=== PATIENT | male | born 1950 | race Caucasian/White ===

== ENCOUNTER 2020-09-18 09:21 | Outpatient (REF) | payer BC, SELFPAY ==
[2020-09-18 11:34] LABS: Glucose Urine UA NEG (NEG); Leukocyte Esterase Urine NEG (NEG); Nitrite Urine NEG (NEG); PH 6.5 (5.0-8.0); Specific Gravity - Urine 1.025 (1.005-1.025); Urine Blood TRACE (NEG); Urine Ketones NEG (NEG); Urine Protein TRACE MG/DL (NEG-TRACE)
[2020-09-18 11:36] LABS: Appearance Urine HAZY; Color Urine YELLOW
[2020-09-18 11:47] LABS: Hemoglobin 11.6 g/dl (14.0-18.0); Mean Corpuscular HGB Conc 31.4 g/dl (31.0-36.0); Mean Corpuscular Hemoglobin 26.5 pg (27.0-33.0); Mean Corpuscular Volume 84.7 fL (80-98); Mean Platelet Volume 10.3 fL (9.4-12.4); Platelet Count 379 X10*3/uL (160-400); Red Blood Count 4.37 X10*6/uL (4.60-5.80); Red Cell Distribution Width 15.1 % (11.0-16.0); White Blood Count 7.3 X10*3/uL (4.8-10.8)
[2020-09-18 11:50] LABS: Mucus Urine 2+ /LPF; WBC Urine 0-2 /HPF (0-4)
[2020-09-18 12:09] LABS: Alanine Aminotransferase 21 U/L (0-40); Albumin Level 3.9 g/dL (3.5-5.0); Alkaline Phosphatase 96 U/L (39-117); Anion Gap 13 (12-20); Aspartate Amino Transferase 17 U/L (5-37); Bilirubin Total 0.6 mg/dL (0.0-1.0); Blood Urea Nitrogen 17 mg/dL (9-16); Calcium 9.2 mg/dL (8.4-10.2); Carbon Dioxide 27 mmol/L (22-29); Chloride 105 mmol/L (96-108); Cholesterol 126 mg/dL; Estimated Glomerular Filt Rate > 60; Glucose Fasting 94 mg/dL (60-99); HDL Cholesterol 44 mg/dL; LDL Cholesterol Calculated 69 mg/dl; Potassium 4.6 mmol/L (3.3-5.1); Sodium 140 mmol/L (135-145); Total Protein 6.9 g/dL (6.5-8.0); Triglycerides 68 mg/dL
[2020-09-18 12:21] LABS: Prostate Specific Antigen Scr 1.89 ng/mL (<0.05-4.0); Vitamin D 25-OH Total 22.9 ng/mL (>30)
[2020-09-18 12:53] LABS: Folate 16.3 ng/mL (> or = 4.0); Vitamin B12 > 2000 pg/mL (200-900)
== END 2020-09-18 09:22 | disposition home or self-care (01) ==
LOC: HO.HMGCLDS 09:21
PROVIDERS: PCP Internal Medicine; Visit Provider Internal Medicine
DX: R00.0 Tachycardia, unspecified (principal); I95.9 Hypotension, unspecified; Z12.5 Encounter for screening for malignant neoplasm of prostate
CPT/HCPCS: 36415; 80053; 80061; 81001; 82306; 82607; 82746; 84153; 85027

== ENCOUNTER 2020-11-21 09:49 | Outpatient (REF) | payer BC, SELFPAY ==
[2020-11-21 11:25] LABS: Glucose Urine UA NEG (NEG); Leukocyte Esterase Urine NEG (NEG); Nitrite Urine NEG (NEG); Specific Gravity - Urine >= 1.030 (1.005-1.025); UACC Culture Trigger NO; Urine Blood TRACE (NEG); Urine Ketones NEG (NEG); Urine Protein NEG (NEG-TRACE)
[2020-11-21 11:29] LABS: Appearance Urine CLEAR; Color Urine YELLOW
[2020-11-21 12:17] LABS: TSH reflex Free T4 2.82 uIU/mL (0.32-4.0)
[2020-11-21 12:37] LABS: Mucus Urine 2+ /LPF
== END 2020-11-21 09:50 | disposition home or self-care (01) ==
LOC: HO.HMGCLDS 09:49
PROVIDERS: PCP Internal Medicine; Visit Provider Internal Medicine
DX: E03.9 Hypothyroidism, unspecified (principal)
CPT/HCPCS: 36415; 81001; 84443

== ENCOUNTER 2021-03-17 15:00 | Outpatient (REF) | payer BC, SELFPAY ==
--- NOTE | ~2021-03-17 | XR_ITS ---
EXAMINATION: XR CHEST CLINICAL INFORMATION: Chest pain. COMPARISON: None TECHNIQUE: 2 views of the chest were obtained. FINDINGS: The lungs are hyperinflated but clear of acute pneumonic process. The heart size and pulmonary vascularity is normal. There is a aortic stent extending from the ascending to the distal descending aorta. There are median sternotomy sutures. No gross bony abnormality seen. XR/XR chest 2V IMPRESSION: Unremarkable chest exam.
[2021-03-17 16:43] LABS: Hematocrit 38.9 % (42.0-52.0); Hemoglobin 12.5 g/dl (14.0-18.0); Mean Corpuscular HGB Conc 32.1 g/dl (31.0-36.0); Mean Corpuscular Hemoglobin 28.1 pg (27.0-33.0); Mean Corpuscular Volume 87.4 fL (80.0-98.0); Mean Platelet Volume 10.2 fL (9.4-12.4); Platelet Count 296 X10*3/uL (160-400); Red Blood Count 4.45 X10*6/uL (4.60-5.80); Red Cell Distribution Width 14.2 % (11.0-16.0); White Blood Count 6.8 X10*3/uL (4.8-10.8)
[2021-03-17 16:50] LABS: Appearance Urine CLEAR; Color Urine YELLOW; Glucose Urine UA NEG (NEG); Leukocyte Esterase Urine NEG (NEG); Nitrite Urine NEG (NEG); Specific Gravity - Urine >= 1.030 (1.005-1.025); UACC Culture Trigger NO; Urine Blood 1+ (NEG); Urine Ketones NEG (NEG); Urine Protein NEG (NEG-TRACE)
[2021-03-17 17:05] LABS: Anion Gap 12 (12-20); Blood Urea Nitrogen 13 mg/dL (9-16); C Reactive Protein 1.33 mg/dL (< or = 0.50); Calcium 9.5 mg/dL (8.4-10.2); Carbon Dioxide 28 mmol/L (22-29); Chloride 106 mmol/L (96-108); Estimated Glomerular Filt Rate > 60; Glucose Random 94 mg/dL (60-115); Potassium 4.6 mmol/L (3.3-5.1); Sodium 141 mmol/L (135-145)
[2021-03-17 17:08] LABS: Troponin-I High Sensitivity < 3.5 ng/L (<3.5-35.0)
[2021-03-17 17:22] LABS: WBC Urine 0-2 /HPF (0-4)
[2021-03-17 17:23] LABS: Mucus Urine TRACE /LPF; Sperm Urine NOTED
== END 2021-03-17 15:01 | disposition home or self-care (01) ==
LOC: HO.HMGCX 15:00
PROVIDERS: PCP Internal Medicine; Visit Provider Internal Medicine
DX: R07.9 Chest pain, unspecified (principal); M54.2 Cervicalgia; I71.01 Dissection of thoracic aorta; I10 Essential (primary) hypertension
CPT/HCPCS: 36415; 71046; 80048; 81001; 84484; 85027; 86140

== ENCOUNTER 2021-03-27 08:16 | Outpatient (REF) | payer MEDICARE, SELFPAY ==
--- NOTE | ~2021-03-27 | US_ITS ---
EXAMINATION: US SOFT TISSUE NECK CLINICAL INFORMATION: Localized enlarged lymph nodes. Prominent node or nodule left supraclavicular area. COMPARISON: Chest x-ray 03/17/2021 is negative for acute disease or nodule. TECHNIQUE: Ultrasound of the neck soft tissues is performed with high- frequency cueto-scale imaging and color Doppler. FINDINGS: Imaging through the left supraclavicular area reveals a complex cystic and solid mass with septation measuring 1.6 x 1.2 x 1.4 cm and appears vascular. It does not appear to be communicating with any of the great vessels. In addition, there are multiple small lymph nodes without a fatty hilum seen. They measure 0.82 x 0.46 x 0.67 cm and 0.89 x 0.79 x 0.95 cm in the left supraclavicular region. US/US soft tiss head and/or neck IMPRESSION: Large heterogeneous lymph node in the left supraclavicular area, abnormal and suspicious for primary or metastatic lesion. There are additional small lymph nodes seen in the left supraclavicular region. Correlate with CT neck and chest exam with contrast.
--- NOTE | ~2021-03-27 | US_ITS ---
EXAMINATION: US RETROPERITONEAL LIMITED (RENAL ONLY) CLINICAL INFORMATION: Microscopic hematuria. COMPARISON: None TECHNIQUE: Real-time imaging of the kidneys. FINDINGS: RIGHT KIDNEY: 11.0 x 6.2 x 5.0 cm (SAG x AP x TRV). The kidney is normal in size, contour, and echogenicity. Renal cortical thickness is normal. No calculi or focal parenchymal lesions. No hydronephrosis. LEFT KIDNEY: 11.8 x 6.5 x 5.1 cm (SAG x AP x TRV). The kidney is normal in size, contour, and echogenicity. Renal cortical thickness is normal. There is a 3 mm echogenic density in the midpole questionable for a small stone. No focal parenchymal lesions or hydronephrosis. US/US renal BI IMPRESSION: Question small left renal stone.
== END 2021-03-27 08:17 | disposition home or self-care (01) ==
LOC: HO.HMGCX 08:16
PROVIDERS: PCP Internal Medicine; Visit Provider Internal Medicine
DX: R59.0 Localized enlarged lymph nodes (principal); M54.2 Cervicalgia; I10 Essential (primary) hypertension; R31.29 Other microscopic hematuria
CPT/HCPCS: 76536; 76775

== ENCOUNTER 2021-04-22 08:46 | Outpatient (REF) | payer MEDICARE, SELFPAY ==
[2021-04-22 12:20] LABS: Blood Urea Nitrogen 17 mg/dL (9-16); Estimated Glomerular Filt Rate > 60
== END 2021-04-22 08:47 | disposition home or self-care (01) ==
LOC: HO.HMGCLDS 08:46
PROVIDERS: PCP Internal Medicine; Visit Provider Internal Medicine
DX: R59.0 Localized enlarged lymph nodes (principal)
CPT/HCPCS: 36415; 82565; 84520

== ENCOUNTER 2021-04-24 08:12 | Outpatient (REF) | payer MEDICARE, SELFPAY ==
--- NOTE | ~2021-04-24 | CT_ITS ---
EXAMINATION: CT SOFT TISSUE NECK WITH CONTRAST CLINICAL INFORMATION: Localized enlarged lymph nodes. COMPARISON: Ultrasound soft tissue neck 03/27/2021 TECHNIQUE: Following the intravenous administration of 60 mL of Omnipaque 350 intravenous contrast, helical imaging was performed in the axial plane with generation of coronal and sagittal reformatted images. This CT examination was performed using dose optimization techniques as appropriate, variously including the following: *Automated exposure control *Adjustment of mA and/or kV according to patient size (this includes techniques or standardized protocols for targeted exams where dose is matched to indication/reason for exam; i.e. extremities or head) *Use of iterative reconstruction technique DLP: 370 mGy-cm FINDINGS: There are bilateral small cervical lymph nodes in the anterior neck. The largest level III right neck lymph node measures 1.1 x 0.7 x 1.1 cm on axial 73/3 and sagittal 75/5. There is a large left supraclavicular nonenhancing lymph node measuring 1.6 x 1.3 cm on axial image 93/3. It measures 13 Hounsfield units, likely a small cyst or a cystic lymph node. In addition, there is a smaller left supraclavicular lymph node measuring 1 cm on axial image 111/3 measuring 10 Hounsfield units. The parotid glands are homogeneous in attenuation. The submandibular glands are normal. No contour abnormality or pathologic enhancement is seen within the oral cavity or pharyngeal mucosal space. There is significant stenosis involving the glottic region from thickening of the true and false vocal cords. There is mild haziness in the adjacent paraglottic fat but no focal mass or nodule visualized. There is a small polyp or mucosal thickening of the left vallecula (axial image 77/3), otherwise the supraglottic region is unremarkable. The subglottic region is unremarkable. The piriform sinuses are patent. Parapharyngeal fat is preserved. The carotid sheath vasculature opacifies normally. No extramucosal soft tissue mass or fluid collection is seen. No retropharyngeal fluid collection is seen. There is a 3 mm hypodense nodule deep in the mid pole of the left thyroid lobe. Otherwise, the thyroid lobes are symmetrical and normal. The superior mediastinum is unremarkable. The lung apices are clear. There is a small polyp or retention cyst in the left maxillary sinus. The rest of the paranasal sinuses and mastoid air cells are well aerated. The temporomandibular joints are normal. No periapical disease is identified. There is an aortic arch stent in place. Also visualized are mediastinal sutures from previous intervention. No osseous abnormalities are seen. There is left frontal scalp and supraorbital soft tissue swelling. The imaged portions of the brain parenchyma are unremarkable. There are degenerative disc changes with spondylosis at the C5-C6 and C6-C7 disc levels. No aggressive lytic or sclerotic process is seen in the cervical spine. CT/CT soft tissue neck w con IMPRESSION: Abnormal-sized nonenhancing left supraclavicular cystic lymph nodes or cysts. Ultrasound-guided aspiration biopsy of this lymph node or cyst can be performed for further evaluation. The findings are similar to the previous ultrasound exam 03/27/2021 Moderate diffuse thickening and mild enlargement of the true and false vocal cords with significant narrowing of the laryngeal airway. Question inflammatory or infectious etiology. Underlying lesion is not excluded given the abnormal supraclavicular lymph nodes and borderline left neck lymph nodes. Recommend laryngoscopy for further evaluation. Small polyp or retention cyst left maxillary sinus. Left frontal and left supraorbital soft tissue swelling. No calvarial abnormality seen.
[2021-04-24] MEDS: iohexoL 350 MG/ML 100 ML INFUS..BTL IV (09:12)
== END 2021-04-24 08:13 | disposition home or self-care (01) ==
LOC: HO.CT 08:12
PROVIDERS: PCP Internal Medicine; Visit Provider Internal Medicine
DX: R59.0 Localized enlarged lymph nodes (principal)
CPT/HCPCS: 70491; Q9967

== ENCOUNTER 2021-05-19 08:54 | Outpatient (REF) | payer MEDICARE, SELFPAY ==
--- NOTE | ~2021-05-19 | US_ITS ---
EXAMINATION: ULTRASOUND-GUIDED BIOPSY LYMPH NODE CLINICAL INFORMATION: Enlarged left cervical lymph node COMPARISON: Previous CT of the abdomen and pelvis 04/24/2021 and neck ultrasound 03/27/2021 TECHNIQUE: Procedure and risks and benefits including bleeding and infection were discussed with the patient and informed consent was obtained. The left neck was prepped and draped in the usual sterile fashion. The skin and soft tissues were anesthetized with 1% lidocaine plain. Using ultrasound guidance and a 22-gauge needle, access to the complex cystic lesion in the left neck was obtained. Approximately 4 mL of cloudy corcoran-colored fluid was aspirated and the lesion decreased in size. Additional 22-gauge FNA sample to ensure sampling of the solid component was performed. FINDINGS: There is a 1.5 x 1.3 x 1.6 cm complex cystic lesion in the left posterior lower neck that was targeted for fine-needle aspiration. US/US biopsy lymph node IMPRESSION: Ultrasound-guided left neck fine-needle aspiration.
[2021-05-19] MEDS: Lidocaine HCl 1 % MPF 5 ML VIAL 4 ML SUBCUT (09:59)
== END 2021-05-19 08:55 | disposition home or self-care (01) ==
LOC: HO.US 08:54
PROVIDERS: Radiology Diagnostic Radiology; PCP Internal Medicine; Visit Provider Internal Medicine
DX: R59.0 Localized enlarged lymph nodes (principal)
CPT/HCPCS: 36415; 38505; 76942; 88172; 88173; 88184; 88185; 88300; 88305

== ENCOUNTER 2021-05-27 07:03 | Outpatient (REF) | payer MEDICARE, SELFPAY ==
[2021-05-27 11:40] LABS: Hematocrit 39.4 % (42.0-52.0); Hemoglobin 12.7 g/dl (14.0-18.0); Mean Corpuscular HGB Conc 32.2 g/dl (31.0-36.0); Mean Corpuscular Hemoglobin 27.9 pg (27.0-33.0); Mean Corpuscular Volume 86.6 fL (80.0-98.0); Mean Platelet Volume 10.6 fL (9.4-12.4); Platelet Count 257 X10*3/uL (160-400); Red Blood Count 4.55 X10*6/uL (4.60-5.80); Red Cell Distribution Width 14.8 % (11.0-16.0); White Blood Count 6.5 X10*3/uL (4.8-10.8)
[2021-05-27 11:55] LABS: Alanine Aminotransferase 22 U/L (0-40); Albumin Level 4.2 g/dL (3.5-5.0); Alkaline Phosphatase 86 U/L (39-117); Anion Gap 11 (12-20); Aspartate Amino Transferase 19 U/L (5-37); Bilirubin Total 0.7 mg/dL (0.0-1.0); Blood Urea Nitrogen 15 mg/dL (9-16); Calcium 9.1 mg/dL (8.4-10.2); Carbon Dioxide 27 mmol/L (22-29); Chloride 110 mmol/L (96-108); Cholesterol 139 mg/dL; Estimated Glomerular Filt Rate > 60; Glucose Fasting 94 mg/dL (60-99); HDL Cholesterol 46 mg/dL; LDL Cholesterol Calculated 84 mg/dl; Lactate Dehydrogenase 212 U/L (118-273); Potassium 4.8 mmol/L (3.3-5.1); Sodium 143 mmol/L (135-145); Total Protein 7.1 g/dL (6.5-8.0); Triglycerides 49 mg/dL
[2021-05-27 12:24] LABS: Prostate Specific Antigen Scr 1.63 ng/mL (<0.05-4.0); TSH reflex Free T4 2.69 uIU/mL (0.32-4.0)
[2021-05-27 12:30] LABS: B Type Natriuretic Peptide 78 pg/mL (<100)
== END 2021-05-27 07:04 | disposition home or self-care (01) ==
LOC: HO.HMGCLDS 07:03
PROVIDERS: Visit Provider Internal Medicine
DX: Z12.5 Encounter for screening for malignant neoplasm of prostate (principal); R06.00 Dyspnea, unspecified; D64.9 Anemia, unspecified; E03.9 Hypothyroidism, unspecified; E78.5 Hyperlipidemia, unspecified; I10 Essential (primary) hypertension
CPT/HCPCS: 36415; 80053; 80061; 83615; 83880; 84153; 84443; 85027

== ENCOUNTER 2021-06-10 10:44 | Outpatient (REF) | payer MEDICARE, SELFPAY ==
--- NOTE | 2021-06-10 17:30 | PFT_ITS ---
INDICATION: Cough and/or dyspnea. SPIROMETRY: FEV1 to FVC 75%, post bronchodilators 69%. Prior to the bronchodilator therapy, FEV1 of 2.42 L, which is 81% predicted and FVC of 3.23 L, which is 79% predicted. No significant response to bronchodilators noted, although there is evidence of small airways disease. Maximum voluntary ventilation 88% predicted. LUNG VOLUMES: Total lung capacity 88% predicted with an expiratory reserve volume of 70% predicted consistent with the elevated BMI. In addition to that, there is a moderate diffusion impairment. COMPARISON: None. INTERPRETATION: There is a reversible obstruction consistent with diagnosis of asthma. The patient also has significant small airway disease. Lung volumes are within normal limits except for decrease in the expiratory reserve volume secondary to the elevated BMI. The moderate diffusion impairment could be secondary to underlying pulmonary vascular conditions, although need to correct for hemoglobin. Clinical correlation warranted. Del Julien MD MR/MODL / [id number]
== END 2021-06-10 10:45 | disposition home or self-care (01) ==
LOC: HO.RESP 10:44
PROVIDERS: PCP Internal Medicine; Visit Provider Internal Medicine
DX: R06.00 Dyspnea, unspecified (principal)
CPT/HCPCS: 94060; 94727; 94729

== ENCOUNTER → 2021-06-19 09:50 | Outpatient (BNVA) | payer MEDICARE, SELFPAY | PROVIDERS: PCP Internal Medicine; Referring Provider Internal Medicine; Visit Provider Surgery | DX: R59.0 Localized enlarged lymph nodes (principal) | CPT/HCPCS: 99202 ==

== ENCOUNTER 2021-06-30 07:30 | Day surgery (SDC) | payer MEDICARE, SELFPAY ==
[2021-06-24 10:55] VITALS: BMI 33.7
--- NOTE | 2021-06-27 08:19 | HO.ANESPROP2 ---
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 COVID and pericarditis postop (resolved) 04/2021 CT neck - thickening/enlargement of vocal cords with significant narrowing of laryngeal airway. 05/2021 larygoscopy by ENT shows mild edema, airway widely patent. True cords were symmetrical and mobile. No distinct lesions were noted. PCP cleared to proceed. Case reviewed with Dr Martini. [facility] Active Problems Active Problems: All Active Problems (Updated 06/25/21 @ 12:11 by Simran Cottrell MD) BARRY (obstructive sleep apnea) (Acute) Asthma (Acute) GANT (dyspnea on exertion) (Acute) Neck pain (Acute) GANT (dyspnea on exertion) (Acute) Vocal cords swelling (Acute) Cervical adenopathy (Acute) Microscopic hematuria (Acute) Chest pain (Acute) Hypertension (Acute) Lymphadenopathy, supraclavicular (Acute) Dysplastic nevi (Acute) Hyperlipidemia (Acute) Hypothyroid (Acute) Fatigue (Acute) Ascending aortic dissection (Acute) Hypotension (Acute) Anemia (Acute) Pericarditis (Acute) Pleurisy (Acute) Tachycardia (Acute) Aortic aneurysm (Acute) Past Medical History Medical History (Updated 06/25/21 @ 12:11 by Simran Cottrell MD) Anemia Aortic aneurysm Ascending aortic dissection Asthma Cervical adenopathy Chest pain CVA (cerebral vascular accident) GANT (dyspnea on exertion) Dysplastic nevi Fatigue GERD (gastroesophageal reflux disease) Hearing loss History of COVID-19 History of PFTs Hyperlipidemia Hypertension Hypotension Hypothyroid Insomnia Lymphadenopathy, supraclavicular Microscopic hematuria Mixed hyperlipidemia BARRY (obstructive sleep apnea) Pericarditis Pleurisy Severe obstructive sleep apnea Tachycardia Vision loss, left eye Vocal cords swelling Family History Family History Father Prostate cancer Pancreatic cancer Mother Lung cancer Brother Prostate cancer Sister Heart disease Surgical History Surgical History (Updated 06/24/21 @ 10:45 by Amparo Mix RN) History of left-sided carotid endarterectomy Hx of repair of dissecting aneurysm of ascending thoracic aorta Status post right hip replacement Social History Social History Household Members: Significant Other Housing: House Are you a primary team primary care physician to a significant other at home: No Do you presently have visiting nurse or other home services: No Alcohol intake: current Alcohol intake frequency: a few times a week Patient Tobacco Use Status: Former Tobacco user Quit Date: 2012 Tobacco use type: Cigarette e-Cigarette/Vaping Use: Never Used Use of substances other than those prescribed or required for medical reasons: Yes Are you DNR?: No Advance Directives: No Advance Directives Information Provided: Yes service: No Current occupational status: retired Current occupation: [employer] Allergies Allergy/AdvReac Type Severity Reaction Status Date / Time lisinopril AdvReac Mild cough Verified 06/30/21 08:09 Home Medications Medication Instructions Recorded Confirmed Last Taken Type folic acid 1 mg tablet 1 mg PO DAILY 04/09/20 06/25/21 Unknown History aspirin 81 mg tablet,delayed 81 mg PO DAILY 09/18/20 06/30/21 06/29/21 History release atorvastatin 40 mg tablet 40 mg PO DAILY 12/25/20 06/25/21 Unknown History midodrine 5 mg tablet 12.5 mg PO BID tab 12/25/20 06/30/21 06/30/21 06:30 History metoprolol succinate 50 mg 100 mg PO BID 06/19/21 06/25/21 06/30/21 06:30 History tablet,extended release 24 hr Exam Exam Date and Time: June 27, 2021 0819 Height,Weight and Vital Signs: Height 5 ft 8 in Weight 100.698 kg Pertinent Lab Results Pertinent Lab Results: Laboratory Tests 05/27/21 05/27/21 08:05 08:05 WBC 6.5 Hgb 12.7 L Hct 39.4 L Plt Count 257 Sodium 143 Potassium 4.8 Chloride 110 H Carbon Dioxide 27 BUN 15 Creatinine 0.90 Narrative Narrative: CT soft tissue neck w con 04/2021 IMPRESSION: Abnormal-sized nonenhancing left supraclavicular cystic lymph nodes or cysts. Ultrasound-guided aspiration biopsy of this lymph node or cyst can be performed for further evaluation. The findings are similar to the previous ultrasound exam 03/27/2021 ? Moderate diffuse thickening and mild enlargement of the true and false vocal cords with significant narrowing of the laryngeal airway. Question inflammatory or infectious etiology. Underlying lesion is not excluded given the abnormal supraclavicular lymph nodes and borderline left neck lymph nodes. ? Recommend laryngoscopy for further evaluation. ? Small polyp or retention cyst left maxillary sinus. ? Left frontal and left supraorbital soft tissue swelling. No calvarial abnormality seen. Exercise Nuc Stress 03/2021 Normal exercise stress test with nuclear imaging No areas of ischemia or infarct after attentuation correction was applied. There is normal TID ratio RV function was normal Gated SPECT imaging was performed and revealed a normal LV function and thickening with an LVEF of 69% CTA 10/2020 (per cardiac surgery note) stable ascending and arch, decreasing descending size over time, not aneurysmal dilitation Limied ECHO 12/2020 1. Limited to look at aorta 2. s/p thoracic aorta dissection repair. Sinuses of Valsava dilation (4.9cm). Ascending aorta is 3.4cm 3. Prior Echo done at [facility] ECHO 03/2020 LV size is normal. LV wall thickness is normal. LV systolic function is normal. LVEF 55-60%. No RWMA. LV filling pressures are normal. RV is normal in size and function No significant pericardial effusion Documented by User: Deandre Martini MD 06/30/21 08:21 [facility] Past Medical History Medical History (Updated 06/25/21 @ 12:11 by Simran Cottrell MD) Anemia Aortic aneurysm Ascending aortic dissection Asthma Cervical adenopathy Chest pain CVA (cerebral vascular accident) GANT (dyspnea on exertion) Dysplastic nevi Fatigue GERD (gastroesophageal reflux disease) Hearing loss History of COVID-19 History of PFTs Hyperlipidemia Hypertension Hypotension Hypothyroid Insomnia Lymphadenopathy, supraclavicular Microscopic hematuria Mixed hyperlipidemia BARRY (obstructive sleep apnea) Pericarditis Pleurisy Severe obstructive sleep apnea Tachycardia Vision loss, left eye Vocal cords swelling Family History Family History Father Prostate cancer Pancreatic cancer Mother Lung cancer Brother Prostate cancer Sister Heart disease Family history of problems with anesthesia: No Surgical History Surgical History (Updated 06/24/21 @ 10:45 by Amparo Mix RN) History of left-sided carotid endarterectomy Hx of repair of dissecting aneurysm of ascending thoracic aorta Status post right hip replacement History of Problems with Anesthesia: No Social History Social History Household Members: Significant Other Housing: House Are you a primary team primary care physician to a significant other at home: No Do you presently have visiting nurse or other home services: No Alcohol intake: current Alcohol intake frequency: a few times a week Patient Tobacco Use Status: Former Tobacco user Quit Date: 2012 Tobacco use type: Cigarette e-Cigarette/Vaping Use: Never Used Use of substances other than those prescribed or required for medical reasons: Yes Are you DNR?: No Advance Directives: No Advance Directives Information Provided: Yes service: No Current occupational status: retired Current occupation: [employer] Allergies Allergy/AdvReac Type Severity Reaction Status Date / Time lisinopril AdvReac Mild cough Verified 06/30/21 08:09 Home Medications Medication Instructions Recorded Confirmed Last Taken Type folic acid 1 mg tablet 1 mg PO DAILY 04/09/20 06/25/21 Unknown History aspirin 81 mg tablet,delayed 81 mg PO DAILY 09/18/20 06/30/21 06/29/21 History release atorvastatin 40 mg tablet 40 mg PO DAILY 12/25/20 06/25/21 Unknown History midodrine 5 mg tablet 12.5 mg PO BID tab 12/25/20 06/30/21 06/30/21 06:30 History metoprolol succinate 50 mg 100 mg PO BID 06/19/21 06/25/21 06/30/21 06:30 History tablet,extended release 24 hr Exam Airway Mallampati Class: III TM Dist: >3cm Neck ROM: Full Loose/Missing/Broken Teeth: Yes (Many missing, poor dentition) Heart: rrr +s1s2 Lungs: cta b/l Assessment and Plan Assessment Anesthesia Assessment: Anesthesia Plan Discussed and Chart Reviewed Final Anesthetic Review Family History of Problems with Anesthesia: No History of Problems with Anesthesia: No NPO: Yes ASA Class: III Final Preanesthetic Review: No Changes in Pt Med Stat and Meds/Allgs Chart Reviewed Patient Risk: High Procedure Risk: Low Assessment/Block/Sedation in SS: Assess/Block/Sedation-SS Anesthetic Plan Anesthetic Plan: GA, MAC: and Agree w/ Assess. and Plan Disposition: Standard PACU
[2021-06-30 08:11] VITALS: BP 120/90; PULSE 69; RESP 16; TEMP 36.8; O2SAT 96; BMI 33.4
[2021-06-30] MEDS: Lactated Ringers 1,000 ML 100 ML IVCONT (08:39)
--- NOTE | 2021-06-30 09:31 | MHC.SHP ---
Pre-Procedural Eval Section A Date of Service: 06/30/21 The patient is an INPATIENT: No Changes since office visit: Yes Patient answered all questions; No Cold of Flu in the past 2 weeks, No New Medical Problems and No Changes in Medication The History & Physical has been completed within 30 days and I have reviewed it.: Yes Section B Chief Complaint: Acute lymphadenitis of face, head and neck Allergies: Allergies Allergy/AdvReac Type Severity Reaction Status Date / Time lisinopril AdvReac Mild cough Verified 06/30/21 08:09 Plan Diagnosis/Plan: Unchanged I have reviewed the history and physical and performed a pertinent physical examination on my patient. No changes have occurred unless specified.
--- NOTE | 2021-06-30 10:36 | W.PM.OPN ---
Operative Note Operative Note Date of Service: 06/30/21 Narrative: Preoperative diagnosis:Left neck lymphadenopathy Postoperative diagnosis: same Procedure: excision left neck lymphadenopathy Surgeon: Alejandro Vazquez MD Workplace Relations Adviser: Lis Herrera PA-C Anesthesia: mac plus local Indications for procedure: 70-year-old male patient found to have bilateral lymphadenopathy with enlarged lymph node palpable in the left neck. Needle biopsy was nondiagnostic therefore patient presents for an excisional biopsy. Operative findings: Enlarged nodes node with necrotic material within 1 cm diameter Specimen: lymph node left neck Estimated blood loss: 2 mL Complications: none Procedure details: patient was brought to the OR placed in a supine position. After administering light sedation the patient's left neck was prepped with ChloraPrep and draped in a sterile fashion. Local anesthesia consisting of 0.5% Sensorcaine was then infiltrated over the left neck directly over the palpable node. A transverse incision was then made with a scalpel carried out through subcutaneous tissue past platysmas muscle up to the palpable node. And external jugular vein was identified in ligated which was overriding the lymph node. Lymph node was then dissected from the surrounding lymphatic tissue. Hemostasis was assured using free ties of 3-0 Polysorb . The node is complete with excised and sent to pathology for further examination. Wounds were then irrigated with saline solution. Latissimus muscle was then reapproximated using interrupted 3-0 Polysorb sutures. Dermis was reapproximated using interrupted 3-0 Polysorb sutures. Skin was closed using a running subcuticular 4-0 Polysorb suture. Steri-Strips, 2 x 2 gauze, and Tegaderm were then applied. The patient tolerated the procedure well. Sponge, instrument, and needle counts reported as correct. The patient was transferred to PACU in stable condition.
[2021-06-30 10:50] VITALS: BP 115/75; PULSE 89; RESP 12; TEMP 36.1; O2SAT 98
[2021-06-30 11:06] VITALS: BP 138/86; PULSE 77; RESP 18; TEMP 36.4; O2SAT 96
== END 2021-06-30 11:50 | disposition home or self-care (01) ==
PROVIDERS: PCP Internal Medicine; Visit Provider Surgery
PROC: (CPT 38510; principal; 2021-06-30 09:10)
DX: L04.0 Acute lymphadenitis of face, head and neck (principal); D64.9 Anemia, unspecified; I10 Essential (primary) hypertension; E03.9 Hypothyroidism, unspecified; E78.5 Hyperlipidemia, unspecified; G47.33 Obstructive sleep apnea (adult) (pediatric); R06.00 Dyspnea, unspecified; Z79.51 Long term (current) use of inhaled steroids; Z79.82 Long term (current) use of aspirin; Z79.899 Other long term (current) drug therapy; Z88.0 Allergy status to penicillin; Z86.73 Personal history of transient ischemic attack (TIA), and cerebral infarction without residual deficits; Z87.891 Personal history of nicotine dependence; Z86.16 Personal history of COVID-19
CPT/HCPCS: 38510; 88305; 88312; J0690; J1100; J2250; J2405; J3010

== ENCOUNTER → 2021-07-08 11:19 | Outpatient (BNVA) | payer MEDICARE, SELFPAY | PROVIDERS: PCP Internal Medicine; Referring Provider Internal Medicine; Visit Provider Surgery | DX: Z48.817 Encounter for surgical aftercare following surgery on the skin and subcutaneous tissue (principal); R59.0 Localized enlarged lymph nodes | CPT/HCPCS: 99212 ==

== ENCOUNTER → 2021-07-24 10:03 | Outpatient (BNVA) | payer MEDICARE, SELFPAY | PROVIDERS: PCP Internal Medicine; Visit Provider Internal Medicine Pulmonary Disease | DX: J44.9 Chronic obstructive pulmonary disease, unspecified (principal); J84.9 Interstitial pulmonary disease, unspecified; R91.8 Other nonspecific abnormal finding of lung field; R06.02 Shortness of breath; R59.0 Localized enlarged lymph nodes; I71.01 Dissection of thoracic aorta; I10 Essential (primary) hypertension; E03.9 Hypothyroidism, unspecified; E78.2 Mixed hyperlipidemia; G47.33 Obstructive sleep apnea (adult) (pediatric); Z87.891 Personal history of nicotine dependence; Z88.8 Allergy status to other drugs, medicaments and biological substances; I25.10 Atherosclerotic heart disease of native coronary artery without angina pectoris; Z95.1 Presence of aortocoronary bypass graft; Z98.890 Other specified postprocedural states; Z77.090 Contact with and (suspected) exposure to asbestos; Z57.2 Occupational exposure to dust; Z80.1 Family history of malignant neoplasm of trachea, bronchus and lung | CPT/HCPCS: 99202 ==

== ENCOUNTER 2021-08-01 09:27 | Outpatient (REF) | payer MEDICARE, SELFPAY ==
--- NOTE | ~2021-08-01 | CT_ITS ---
EXAMINATION: CT CHEST WITHOUT CONTRAST CLINICAL INFORMATION: Abnormal finding of lung field COMPARISON: Previous chest x-ray most recent February 2021 TECHNIQUE: Multidetector volumetric CT imaging of the chest was done. Axial MIP volume rendering provided. Sagittal and coronal reformatted images were obtained. This CT examination was performed using dose optimization techniques as appropriate, variously including the following: *Automated exposure control *Adjustment of mA and/or kV according to patient size (this includes techniques or standardized protocols for targeted exams where dose is matched to indication/reason for exam; i.e. extremities or head) *Use of iterative reconstruction technique DLP: 200 mGy-cm FINDINGS: TOOLS DEVELOPER: LUNGS: There is thick bandlike scarring or subsegmental atelectasis seen in the right upper lobe adjacent to an accessory fissure for example sagittal reconstructed image 87 and coronal reconstructed image 34. The lungs are otherwise clear. MEDIASTINUM: There is an aortic valve stent graft seen in the thoracic aorta. There is dilatation of the ascending thoracic aorta measuring 5 x 5.2 cm and descending thoracic aorta measuring up to 4.8 x 4.9 cm. The distal descending thoracic aorta is tortuous. There is dilatation of the right subclavian artery measuring up to 2.1 x 2.2 cm. The heart is upper normal in size. There is PLEURA: There is no pleural effusion. No pleural mass or thickening. AXILLA: No lymphadenopathy. There are surgical clips in the right axilla. UPPER ABDOMEN: There is a 5 mm low-attenuation lesion in the right lobe of the liver axial image 53 and left lobe of the liver axial image 54 series 3. The visualized upper abdominal aorta is dilated measuring 4.6 x 4.8 cm in transverse and AP dimension. OSSEOUS STRUCTURES: There are degenerative changes of the spine. There is a median sternotomy. CT/CT chest wo con IMPRESSION: Thick bandlike peripheral or subpleural scarring or subsegmental atelectasis in the right upper lobe adjacent to an accessory fissure. Aneurysm of the thoracic aorta and stent graft. Dilated right subclavian artery. Dilated visualized upper abdominal aorta. Coronary artery calcification. Fleischner guidelines were followed.
== END 2021-08-01 09:28 | disposition home or self-care (01) ==
LOC: HO.CT 09:27
PROVIDERS: PCP Internal Medicine; Visit Provider Internal Medicine Pulmonary Disease
DX: R91.8 Other nonspecific abnormal finding of lung field (principal)
CPT/HCPCS: 71250

== ENCOUNTER → 2021-08-14 09:03 | Outpatient (BNVA) | payer MEDICARE, SELFPAY | PROVIDERS: PCP Internal Medicine; Visit Provider Internal Medicine Pulmonary Disease | DX: J43.9 Emphysema, unspecified (principal); R06.00 Dyspnea, unspecified; I25.10 Atherosclerotic heart disease of native coronary artery without angina pectoris; Z79.899 Other long term (current) drug therapy; Z95.1 Presence of aortocoronary bypass graft | CPT/HCPCS: 99212 ==

== ENCOUNTER 2021-08-19 07:16 | Outpatient (REF) | payer MEDICARE, SELFPAY ==
[2021-08-19 12:08] LABS: Alanine Aminotransferase 18 U/L (0-40); Alkaline Phosphatase 84 U/L (39-117); Anion Gap 10 (12-20); Aspartate Amino Transferase 19 U/L (5-37); Blood Urea Nitrogen 16 mg/dL (9-16); Calcium 9.4 mg/dL (8.4-10.2); Carbon Dioxide 28 mmol/L (22-29); Chloride 107 mmol/L (96-108); Cholesterol 144 mg/dL; Estimated Glomerular Filt Rate > 60; Glucose Fasting 96 mg/dL (60-99); HDL Cholesterol 50 mg/dL; Iron 83 mcg/dL (45-160); LDL Cholesterol Calculated 80 mg/dl; Percent Iron Saturation 27 % (15-50); Potassium 4.1 mmol/L (3.3-5.1); Sodium 141 mmol/L (135-145); Total Iron Binding Capacity 309 mcg/dL (228-428); Total Protein 6.8 g/dL (6.5-8.0); Triglycerides 71 mg/dL; Unsaturated Iron Binding 226 ug/dL
== END 2021-08-19 07:17 | disposition home or self-care (01) ==
LOC: HO.HMGCLDS 07:16
PROVIDERS: Visit Provider Internal Medicine
DX: E78.5 Hyperlipidemia, unspecified (principal); I10 Essential (primary) hypertension; R06.00 Dyspnea, unspecified; D64.9 Anemia, unspecified; E03.9 Hypothyroidism, unspecified
CPT/HCPCS: 36415; 80053; 80061; 83540

== ENCOUNTER 2021-08-27 09:39 | Outpatient (REF) | payer MEDICARE, SELFPAY ==
--- NOTE | ~2021-08-27 | XR_ITS ---
EXAMINATION: XR KNEE, RIGHT CLINICAL INFORMATION: Knee pain COMPARISON: None TECHNIQUE: Four views of the right knee. FINDINGS: There is no evidence of acute fracture or dislocation of the right knee. Chondrocalcinosis is seen about the lateral joint space compartment. The joint space compartments appear maintained. No significant effusion is appreciated. XR/XR knee RT 4V IMPRESSION: Chondrocalcinosis lateral joint space compartment without significant joint space narrowing appreciated. No acute fracture or effusion.
== END 2021-08-27 09:40 | disposition home or self-care (01) ==
LOC: HO.HMGCX 09:39
PROVIDERS: PCP Internal Medicine; Visit Provider Internal Medicine
DX: M25.561 Pain in right knee (principal)
CPT/HCPCS: 73564

== ENCOUNTER 2021-10-07 07:36 | Outpatient (REF) | payer MEDICARE, SELFPAY ==
[2021-10-07 12:19] LABS: Alanine Aminotransferase 19 U/L (0-40); Albumin Level 3.9 g/dL (3.5-5.0); Alkaline Phosphatase 92 U/L (39-117); Anion Gap 10 (12-20); Aspartate Amino Transferase 17 U/L (5-37); Bilirubin Total 0.8 mg/dL (0.0-1.0); Blood Urea Nitrogen 15 mg/dL (9-16); Calcium 8.8 mg/dL (8.4-10.2); Carbon Dioxide 25 mmol/L (22-29); Chloride 110 mmol/L (96-108); Cholesterol 103 mg/dL; Estimated Glomerular Filt Rate > 60; Glucose Fasting 96 mg/dL (60-99); HDL Cholesterol 45 mg/dL; LDL Cholesterol Calculated 49 mg/dl; Potassium 4.1 mmol/L (3.3-5.1); Sodium 141 mmol/L (135-145); Total Protein 6.6 g/dL (6.5-8.0); Triglycerides 45 mg/dL
== END 2021-10-07 07:37 | disposition home or self-care (01) ==
LOC: HO.HMGCLDS 07:36
PROVIDERS: Visit Provider Internal Medicine
DX: I10 Essential (primary) hypertension (principal); E78.5 Hyperlipidemia, unspecified; J44.9 Chronic obstructive pulmonary disease, unspecified
CPT/HCPCS: 36415; 80053; 80061

== ENCOUNTER → 2021-12-11 08:45 | Outpatient (BNVA) | payer MEDICARE, SELFPAY | PROVIDERS: PCP Internal Medicine; Visit Provider Internal Medicine Pulmonary Disease | DX: J43.9 Emphysema, unspecified (principal); R06.00 Dyspnea, unspecified | CPT/HCPCS: 99212 ==

== ENCOUNTER 2022-03-05 07:22 | Outpatient (REF) | payer MEDICARE, SELFPAY ==
[2022-03-05 11:19] LABS: MANUAL DIFF FLAG NO
[2022-03-05 11:44] LABS: Alanine Aminotransferase 13 U/L (0-40); Albumin Level 4.2 g/dL (3.5-5.0); Alkaline Phosphatase 77 U/L (39-117); Anion Gap 14 (12-20); Aspartate Amino Transferase 14 U/L (5-37); Bilirubin Total 0.7 mg/dL (0.0-1.0); Blood Urea Nitrogen 14 mg/dL (9-16); Calcium 9.3 mg/dL (8.4-10.2); Carbon Dioxide 26 mmol/L (22-29); Chloride 106 mmol/L (96-108); Cholesterol 224 mg/dL; Estimated Glomerular Filt Rate > 60; Glucose Fasting 98 mg/dL (60-99); HDL Cholesterol 52 mg/dL; LDL Cholesterol Calculated 154 mg/dl; Potassium 4.8 mmol/L (3.3-5.1); Sodium 141 mmol/L (135-145); Total Protein 7.1 g/dL (6.5-8.0); Triglycerides 91 mg/dL
[2022-03-05 11:47] LABS: Basophils Absolute Auto 0.1 X10*3/uL (0.0-0.2); Basophils Percent Auto 0.9 % (0-2); Eosinophils Absolute Auto 0.1 X10*3/uL (0.0-0.4); Eosinophils Percent Auto 1.3 % (0-4); Hematocrit 42.8 % (42.0-52.0); Hemoglobin 13.7 g/dl (14.0-18.0); Imm Gran Abs Auto 0.02 X10*3/uL (0.00-0.03); Imm Gran Pct Auto 0.3 % (0.0-0.4); Lymphocytes Absolute Auto 1.5 X10*3/uL (1.2-4.9); Lymphocytes Percent Auto 22.2 % (20-40); Mean Corpuscular Hemoglobin 28.2 pg (27.0-33.0); Mean Corpuscular Volume 88.1 fL (80.0-98.0); Monocytes Absolute Auto 0.6 X10*3/uL (0.1-1.2); Monocytes Percent Auto 8.7 % (2-11); Neutrophils Absolute Auto 4.5 x10*3/uL (2.0-8.3); Neutrophils Percent Auto 66.6 % (45-73); Platelet Count 306 X10*3/uL (160-400); Red Blood Count 4.86 X10*6/uL (4.60-5.80); Red Cell Distribution Width 14.3 % (11.0-16.0); White Blood Count 6.8 X10*3/uL (4.8-10.8)
[2022-03-05 12:19] LABS: PSA,Total (Free>4and<10) 2.45 ng/mL (0.00-4.00); TSH reflex Free T4 3.22 uIU/mL (0.32-4.0)
== END 2022-03-05 07:23 | disposition home or self-care (01) ==
LOC: HO.HMGCLDS 07:22
PROVIDERS: PCP Internal Medicine; Visit Provider Internal Medicine
DX: Z12.5 Encounter for screening for malignant neoplasm of prostate (principal); E78.5 Hyperlipidemia, unspecified; R06.00 Dyspnea, unspecified; R53.83 Other fatigue; E03.9 Hypothyroidism, unspecified
CPT/HCPCS: 36415; 80053; 80061; 84153; 84443; 85025

== ENCOUNTER 2022-12-22 10:03 | Outpatient (AMB) | payer MEDICARE, SELFPAY ==
[2022-12-22 10:07] VITALS: BP 142/84; PULSE 66; O2SAT 94; BMI 33.7
--- NOTE | 2022-12-22 10:07 | A.OFFVIS_ITS ---
Intake Vital Signs 12/22/22 10:07 Height 5 ft 8 in Weight 221 lb 9.033 oz BMI 33.7 BP 142/84 H Blood Pressure Location Rt brachial Position Sitting Pulse 66 Pulse Source Doppler Pulse Oximetry (%) 94 Oxygen Delivery Method Room Air Intake Visit Reasons: Pulmonary nodules Allergies lisinopril Adverse Reaction (Mild, Verified 12/22/22 10:12) cough HPI Pulmonary nodules HPI Details 72-year-old gentleman, former 40 pack-year smoker, quit 2012 with underlying history of cervical lymphadenopathy, status post left side excision demonstrating no malignancy, now under oncology care, referred for evaluation of pulmonary component to his dyspnea on exertion.? Patient does have underlying history of coronary artery disease status post 3v CABG and an aortic dissection repair.? He does have recent pulmonary function testing showing decrease in diffusion capacity and bronchodilator response in small airways.? Patient completed his CT chest that showed no significant underlying interstitial lung disease or emphysema. Patient has had cardiopulmonary exercise test that showed at least 30% ventilatory reserve, and thus no pulmonary limitation to exercise capacity.? There is possible cardiac limitation from negative chronotropic effect of his beta-tiburcio. Patient was tried on Trelegy, however he did not tolerate its antimuscarinic effects. He does continue to complain of dyspnea on exertion, however he also states that he works at least a mild several times a week and does a rather rigorous gym workout. [facility] Medical History (Updated 01/29/22 @ 13:27 by Simran Cottrell MD) Anemia Aortic aneurysm Ascending aortic dissection Asthma Cervical adenopathy CVA (cerebral vascular accident) GANT (dyspnea on exertion) Dysplastic nevi Fatigue GERD (gastroesophageal reflux disease) Hearing loss History of COVID-19 History of PFTs Hyperlipidemia Hypertension Hypothyroid Insomnia Knee pain Lymphadenopathy, supraclavicular Microscopic hematuria Mixed hyperlipidemia BARRY (obstructive sleep apnea) Pericarditis Pleurisy Severe obstructive sleep apnea Tachycardia Vision loss, left eye Vocal cords swelling Surgical History History of left-sided carotid endarterectomy History of lymph node excision Hx of repair of dissecting aneurysm of ascending thoracic aorta Status post right hip replacement Family History Father Prostate cancer Pancreatic cancer Mother Lung cancer Brother Prostate cancer Sister Heart disease Social History Household Members: Significant Other Housing: House Are you a primary care program director to a significant other at home: No Do you presently have visiting nurse or other home services: Yes (every 4 months) Alcohol intake: current Alcohol intake frequency: a few times a week Patient Tobacco Use Status: Former Tobacco user Quit Date: 2012 Tobacco use type: Cigarette e-Cigarette/Vaping Use: Never Used service: No Current occupational status: retired 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 Review of Systems Const Denies daytime sleepiness, Denies excessive sweating, Denies fatigue, Denies fever(s), Denies lethargy, Denies malaise, Denies night sweats, Denies snoring and Denies weight loss Eyes Denies blurry vision and Denies itchy eyes ENT Denies nasal congestion, Denies post nasal drip, Denies sinus pain, Denies sinus pressure and Denies other ( Thrush) Card Denies chest pain, Denies pedal edema, Denies dyspnea, Reports dyspnea on exertion, Denies orthopnea and Denies paroxysmal nocturnal dyspnea Resp Denies cough, Denies hemoptysis, Denies excessive phlegm production, Denies dyspnea, Reports dyspnea on exertion, Denies snoring and Denies wheezing GI Denies abdominal pain and Denies heartburn Musc Denies myalgias, Denies arthralgias and Denies joint swelling Skin/Breast Denies rash Neuro Denies memory loss and Denies seizure-like activity Psych Denies abnormal sleep pattern, Denies anxiety and Denies memory loss Endo Denies excessive sweating, Denies fatigue and Denies heat intolerance Lee/Lymph Denies easy bruising Aller/Immun Denies itchy eyes, Denies seasonal rhinorrhea and Denies wheezing Physical Exam Vital Signs: Last Vital Signs Pulse 66 12/22/22 10:07 BP 142/84 H 12/22/22 10:07 Pulse Ox 94 12/22/22 10:07 Oxygen Delivery Method Room Air 12/22/22 10:07 BMI result Body Mass Index 33.7 Const General: no acute distress and alert Nutritional Appearance: not obese Orientation/consciousness: Other orientation findings ( oriented) HEENT Head: Yes atraumatic Eyes General: appearance normal, both eyes and all related structures Sclerae: sclerae normal EOM: EOMs intact bilaterally Neck Neck: Yes supple Lymphatic: no lymphadenopathy noted Resp Effort & Inspection: normal respiratory effort and no use of accessory muscles Auscultation: clear to auscultation bilaterally Cardio Rate: regular rate Rhythm: regular rhythm Heart sounds: no gallops, no murmurs and no rubs Skin General skin exam: other ( warm) Extrem General: No clubbing, No cyanosis and No edema Assessment & Plan Assessment & Plan (1) Pulmonary emphysema: Code(s): J43.9 - Emphysema, unspecified Plan: Did not tolerate trilogy secondary to antimuscarinic effects, will start on Breo. (2) GANT (dyspnea on exertion): Code(s): R06.00 - Dyspnea, unspecified Plan: Appears to have mostly cardiac component to his symptoms. Coding Level of Care Code Est Pt Level 4 (50249) Diagnoses Pulmonary emphysema J43.9 GANT (dyspnea on exertion) R06.00
== END 2022-12-22 10:24 | disposition home or self-care (01) ==
PROVIDERS: PCP Internal Medicine; Visit Provider Internal Medicine Pulmonary Disease
DX: J43.9 Emphysema, unspecified (principal); R06.00 Dyspnea, unspecified
CPT/HCPCS: 99214

== ENCOUNTER → 2022-12-22 10:03 | Outpatient (BNVA) | payer MEDICARE, SELFPAY | PROVIDERS: PCP Internal Medicine; Visit Provider Internal Medicine Pulmonary Disease | DX: J43.9 Emphysema, unspecified (principal); R06.00 Dyspnea, unspecified | CPT/HCPCS: 99212 ==

== ENCOUNTER 2023-02-26 10:04 | Outpatient (AMB) | payer MEDICARE, SELFPAY ==
--- NOTE | 2023-02-26 10:06 | A.OFFVIS_ITS ---
Intake Vital Signs 02/26/23 10:07 Height 5 ft 8 in Weight 229 lb 4.492 oz BMI 34.9 BP 134/72 Blood Pressure Location Rt brachial Position Sitting Pulse 68 Pulse Source Doppler Pulse Oximetry (%) 98 Oxygen Delivery Method Room Air Intake Visit Reasons: COPD Allergies lisinopril Adverse Reaction (Mild, Verified 02/26/23 10:10) cough HPI COPD HPI Details 72-year-old gentleman, former 40 pack-ye ar smoker, quit 2012 with un derlying history of cervical lymphadenopathy, status post left side excision demonstrating no malignancy, now under oncology care, followed for pulmonary component to his dyspnea on exertion.? Patient does have underlying history of coronary artery disease status post 3v CABG and an aortic dissection repair.? He does have recent pulmonary function testing showing decrease in diffusion capacity and bronchodilator response in small airways.? Patient completed his CT chest that showed no significant underlying interstitial lung disease or emphysema. Patient has had cardiopulmonary exercise test that showed at least 30% ventilatory reserve, and thus no pulmonary limitation to exercise capacity.? At the last office visit he was switched from trilogy to Breo, however he derive no symptomatic relief. He continues to go to gym and is able to tolerate a rather vigorous exercise program. [facility] Medical History (Updated 01/29/22 @ 13:27 by Simran Cottrell MD) Knee pain BARRY (obstructive sleep apnea) Asthma History of COVID-19 GANT (dyspnea on exertion) Vocal cords swelling Cervical adenopathy Microscopic hematuria Lymphadenopathy, supraclavicular Dysplastic nevi Hyperlipidemia Hypothyroid Fatigue Ascending aortic dissection Anemia Pericarditis Pleurisy Tachycardia Aortic aneurysm Mixed hyperlipidemia CVA (cerebral vascular accident) GERD (gastroesophageal reflux disease) Severe obstructive sleep apnea Vision loss, left eye History of PFTs Insomnia Hearing loss Hypertension Surgical History History of lymph node excision History of left-sided carotid endarterectomy Hx of repair of dissecting aneurysm of ascending thoracic aorta Status post right hip replacement Family History Father Prostate cancer Pancreatic cancer Mother Lung cancer Brother Prostate cancer Sister Heart disease Social History Household Members: Significant Other Housing: House Are you a primary pediatric critical care nurse to a significant other at home: No Do you presently have visiting nurse or other home services: Yes (every 4 months) Alcohol intake: current Alcohol intake frequency: a few times a week Patient Tobacco Use Status: Former Tobacco user Quit Date: 2012 Tobacco use type: Cigarette e-Cigarette/Vaping Use: Never Used service: No Current occupational status: retired 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 Review of Systems Const Denies daytime sleepiness, Denies excessive sweating, Denies fatigue, Denies fever(s), Denies lethargy, Denies malaise, Denies night sweats, Denies snoring and Denies weight loss Eyes Denies blurry vision and Denies itchy eyes ENT Denies nasal congestion, Denies post nasal drip, Denies sinus pain, Denies sinus pressure and Denies other ( Thrush) Card Denies chest pain, Denies pedal edema, Denies dyspnea, Reports dyspnea on exertion (Intermittent), Denies orthopnea and Denies paroxysmal nocturnal d yspnea Resp Denies cough, Denies hemoptysis, Denies excessive phlegm production, Denies dyspnea, Reports dyspnea on exertion (Intermittent), Denies snoring and Denies wheezing GI Denies abdominal pain and Denies heartburn Musc Denies myalgias, Denies arthralgias and Denies joint swelling Skin/Breast Denies rash Neuro Denies memory loss and Denies seizure-like activity Psych Denies abnormal sleep pattern, Denies anxiety and Denies memory loss Endo Denies excessive sweating, Denies fatigue and Denies heat intolerance Lee/Lymph Denies easy bruising Aller/Immun Denies itchy eyes, Denies seasonal rhinorrhea and Denies wheezing Physical Exam Vital Signs: Last Vital Signs Pulse 68 02/26/23 10:07 BP 134/72 02/26/23 10:07 Pulse Ox 98 02/26/23 10:07 Oxygen Delivery Method Room Air 02/26/23 10:07 BMI result Body Mass Index 34.9 Const General: no acute distress and alert Nutritional Appearance: not obese Orientation/consciousness: Other orientation findings ( oriented) HEENT Head: Yes atraumatic Eyes General: appearance normal, both eyes and all related structures Sclerae: sclerae normal EOM: EOMs intact bilaterally Neck Neck: Yes supple Lymphatic: no lymphadenopathy noted Resp Effort & Inspection: normal respiratory effort and no use of accessory muscles Auscultation: clear to auscultation bilaterally Cardio Rate: regular rate Rhythm: regular rhythm Heart sounds: no gallops, no murmurs and no rubs Skin General skin exam: other ( warm) Extrem General: No clubbing, No cyanosis and No edema Assessment & Plan Assessment & Plan (1) Pulmonary emphysema: Code(s): J43.9 - Emphysema, unspecified Plan: Underlying mild to moderate COPD on pulmonary function testing, however no pulmonary limitation to exercise on cardiopulmonary exercise testing. No symptomatic response to Breo. Start Breo. Continue albuterol MDI. (2) GANT (dyspnea on exertion): Code(s): R06.00 - Dyspnea, unspecified Plan: Appy S to be multifactorial with contribution from underlying cardiac and possible deconditioning etiologies. At this time there is no significant pulmonary component. Coding Level of Care Code Est Pt Level 4 (63314) Diagnoses Pulmonary emphysema J43.9 GANT (dyspnea on exertion) R06.00
[2023-02-26 10:07] VITALS: BP 134/72; PULSE 68; O2SAT 98; BMI 34.9
== END 2023-02-26 10:25 | disposition home or self-care (01) ==
PROVIDERS: PCP Internal Medicine; Visit Provider Internal Medicine Pulmonary Disease
DX: J43.9 Emphysema, unspecified (principal); R06.00 Dyspnea, unspecified
CPT/HCPCS: 99214

== ENCOUNTER → 2023-02-26 10:04 | Outpatient (BNVA) | payer MEDICARE, SELFPAY | PROVIDERS: PCP Internal Medicine; Visit Provider Internal Medicine Pulmonary Disease | DX: J43.9 Emphysema, unspecified (principal); R06.00 Dyspnea, unspecified | CPT/HCPCS: 99212 ==

== ENCOUNTER 2023-04-27 08:44 | Outpatient (AMB) | payer MEDICARE, SELFPAY ==
[2023-04-27 08:51] VITALS: BP 118/78; PULSE 73; O2SAT 97; BMI 35.5
--- NOTE | 2023-04-27 08:51 | MHC.OFFVIS ---
Intake Vital Signs 04/27/23 08:51 Height 5 ft 8 in Weight 233 lb 11.04 oz BMI 35.5 BP 118/78 Blood Pressure Location Rt brachial Position Sitting Pulse 73 Pulse Source Doppler Pulse Oximetry (%) 97 Oxygen Delivery Method Room Air Intake Visit Reasons: COPD Allergies lisinopril Adverse Reaction (Mild, Verified 04/27/23 08:57) cough HPI COPD HPI Details 72-year-old gentleman, former 40 pack-year smoker, quit 2012 with underlying history of cervical lymphadenopathy, status post left side excision demonstrating no malignancy, now under oncology care, followed for pulmonary component to his dyspnea on exertion.? Patient does have underlying history of coronary artery disease status post 3v CABG and an aortic dissection repair.? His pulmonary function testing shows decrease in diffusion capacity and bronchodilator response in small airways.? Patient completed his CT chest that showed no significant underlying interstitial lung disease or emphysema. Patient has had cardiopulmonary exercise test that showed at least 30% ventilatory reserve, and thus no pulmonary limitation to exercise capacity.? At the last office visit his Breo worse stopped secondary to no symptomatic benefit and he continues on albuterol MDI. Recently he decreased his gym visits, however patient states that he has a planning vacation in [facility] with significant exercise component. [facility] Medical History (Updated 01/29/22 @ 13:27 by Simran Cottrell MD) Knee pain BARRY (obstructive sleep apnea) Asthma History of COVID-19 GANT (dyspnea on exertion) Vocal cords swelling Cervical adenopathy Microscopic hematuria Lymphadenopathy, supraclavicular Dysplastic nevi Hyperlipidemia Hypothyroid Fatigue Ascending aortic dissection Anemia Pericarditis Pleurisy Tachycardia Aortic aneurysm Mixed hyperlipidemia CVA (cerebral vascular accident) GERD (gastroesophageal reflux disease) Severe obstructive sleep apnea Vision loss, left eye History of PFTs Insomnia Hearing loss Hypertension Surgical History History of lymph node excision History of left-sided carotid endarterectomy Hx of repair of dissecting aneurysm of ascending thoracic aorta Status post right hip replacement Family History Father Prostate cancer Pancreatic cancer Mother Lung cancer Brother Prostate cancer Sister Heart disease Social History Household Members: Significant Other Housing: House Are you a primary restorative care technician to a significant other at home: No Do you presently have visiting nurse or other home services: Yes (every 4 months) Alcohol intake: current Alcohol intake frequency: a few times a week Patient Tobacco Use Status: Former Tobacco user Quit Date: 2012 Tobacco use type: Cigarette e-Cigarette/Vaping Use: Never Used service: No Current occupational status: retired Current occupation: [employer]er/[employer] Review of Systems Const Denies daytime sleepiness, Denies excessive sweating, Denies fatigue, Denies fever(s), Denies lethargy, Denies malaise, Denies night sweats, Denies snoring and Denies weight loss Eyes Denies blurry vision and Denies itchy eyes ENT Denies nasal congestion, Denies post nasal drip, Denies sinus pain, Denies sinus pressure and Denies other ( Thrush) Card Denies chest pain, Denies pedal edema, Denies dyspnea, Denies orthopnea and Denies paroxysmal nocturnal dyspnea Resp Denies cough, Denies hemoptysis, Denies excessive phlegm production, Denies dyspnea, Denies snoring and Denies wheezing GI Denies abdominal pain and Denies heartburn Musc Denies myalgias, Denies arthralgias and Denies joint swelling Skin/Breast Denies rash Neuro Denies memory loss and Denies seizure-like activity Psych Denies abnormal sleep pattern, Denies anxiety and Denies memory loss Endo Denies excessive sweating, Denies fatigue and Denies heat intolerance Lee/Lymph Denies easy bruising Aller/Immun Denies itchy eyes, Denies seasonal rhinorrhea and Denies wheezing Physical Exam Vital Signs: Last Vital Signs Pulse 73 04/27/23 08:51 BP 118/78 04/27/23 08:51 Pulse Ox 97 04/27/23 08:51 Oxygen Delivery Method Room Air 04/27/23 08:51 BMI result Body Mass Index 35.5 Const General: no acute distress and alert Nutritional Appearance: not obese Orientation/consciousness: Other orientation findings ( oriented) HEENT Head: Yes atraumatic Eyes General: appearance normal, both eyes and all related structures Sclerae: sclerae normal EOM: EOMs intact bilaterally Neck Neck: Yes supple Lymphatic: no lymphadenopathy noted Resp Effort & Inspection: normal respiratory effort and no use of accessory muscles Auscultation: clear to auscultation bilaterally Cardio Rate: regular rate Rhythm: regular rhythm Heart sounds: no gallops, no murmurs and no rubs Skin General skin exam: other ( warm) Extrem General: No clubbing, No cyanosis and No edema Assessment & Plan Assessment & Plan (1) COPD (chronic obstructive pulmonary disease): Code(s): J44.9 - Chronic obstructive pulmonary disease, unspecified Plan: No symptomatic response to long-acting bronchodilators. Continues on albuterol MDI. (2) GANT (dyspnea on exertion): Code(s): R06.00 - Dyspnea, unspecified Plan: Patient has had essentially normal cardiac workup and now symptomatic response of bronchodilators. He continues on exercise program with intent to lose weight and reassess the symptoms at that time. May consider pulmonary rehab. Coding Level of Care Code Est Pt Level 4 (99568) Diagnoses COPD (chronic obstructive pulmonary disease) J44.9 GANT (dyspnea on exertion) R06.00
== END 2023-04-27 09:12 | disposition home or self-care (01) ==
PROVIDERS: PCP Family Medicine; Visit Provider Internal Medicine Pulmonary Disease
DX: J44.9 Chronic obstructive pulmonary disease, unspecified (principal); R06.00 Dyspnea, unspecified
CPT/HCPCS: 99214

== ENCOUNTER → 2023-04-27 08:44 | Outpatient (BNVA) | payer MEDICARE, SELFPAY | PROVIDERS: PCP Family Medicine; Visit Provider Internal Medicine Pulmonary Disease | DX: J44.9 Chronic obstructive pulmonary disease, unspecified (principal); R06.00 Dyspnea, unspecified | CPT/HCPCS: 99212 ==